=== PATIENT | male | born 1975 | race American Indian/Alaskan Native ===

== ENCOUNTER 2017-10-03 20:06 | Emergency (ER) | payer MEDICAID, OTHER, SELFPAY ==
[2017-10-03 20:19] VITALS: BP 133/68; PULSE 86; RESP 16; TEMP 36.8; O2SAT 98
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
[2017-10-03] MEDS: IBUPROFEN 400 MG TABLET 800 MG PO (21:18)
[2017-10-03 21:19] VITALS: BP 128/68; PULSE 79; RESP 18; O2SAT 96
== END 2017-10-03 21:37 | disposition home or self-care (01) ==
PROVIDERS: Emergency Provider Internal Medicine; Family Provider Family Medicine; PCP Family Medicine
DX: M54.5 Low back pain (principal); V49.40XA Driver injured in collision with unspecified motor vehicles in traffic accident, initial encounter
CPT/HCPCS: 72100; 81003; 99282; 99284

== ENCOUNTER 2021-08-18 19:29 | Emergency (ER) | payer SELFPAY ==
[2021-08-18 19:36] VITALS: BP 126/64; PULSE 64; RESP 20; TEMP 36.6; O2SAT 96
--- NOTE | 2021-08-18 19:46 | ED_ITS ---
HPI - General Adult General Chief complaint: Recheck/Abnormal Lab/Rx Stated complaint: states covid+, wants help Time Seen by Provider: 08/18/21 19:40 Source: patient Mode of arrival: Ambulatory History of Present Illness HPI narrative: 45-year-old male daily smoker with no significant chronic medical history presents for evaluation of positive COVID result. He states that it he was symptomatic with classic symptoms including nasal congestion, sore throat and cough 2 weeks ago and had a positive home test. He feels significantly improved and denies much in the way of any symptoms whatsoever but states he still has a positive COVID test in isn't sure what to do. He has had no fever or chills for nearly 2 weeks. He has no headache, blurred vision, runny nose or sore throat. He denies any chest pain or shortness of breath. He has no nausea, vomiting or diarrhea. He denies any dysuria, frequency or urgency. Related Data Previous Rx's Medication Instructions Recorded cephalexin 500 mg capsule (Keflex) 500 mg PO TID #21 caps 06/08/17 mupirocin 2 % topical ointment 0 kathleen topical TID ##22 06/08/17 Allergies Allergy/AdvReac Type Severity Reaction Status Date / Time No Known Drug Allergies Allergy Verified 10/03/17 20:19 Review of Systems Review of Systems Narrative: GENERAL: Denies chills, fatigue, malaise, fever, sweats. HEENT: Denies sinus pain, ear pain, sore throat, difficulty swallowing, dizziness. RESPIRATORY: Denies dyspnea, cough, wheezing, hemoptysis, sputum. CARDIOVASCULAR: Denies chest pain, palpitations, orthopnea, edema, GASTROINTESTINAL: Denies nausea, vomiting, abdominal pain, diarrhea, constipatio n, melena. : Denies dysuria, frequency, incontinence, hematuria, urinary retention. MUSCULOSKELETAL: denies weakness, joint pain, or bony pain SKIN: Denies rash, skin lesions, or other NEUROLOGIC: Denies weakness, headache, numbness, change in speech, confusion, seizures, incoordination. PSYCHIATRIC: No concerning psychosocial issues. 12 point review of systems is negative except for those stated above Patient History Medical History Degenerative disc disease Osteoarthritis of knees, bilateral Social History Smoking Status: Current every day smoker Smoking Status: Current every day smoker alcohol intake frequency: 0-2 drinks per day Substance Use Type: does not use Exam Narrative Exam Narrative: GEN: AOx3 and in no obvious distress, resting comfortably EYES: Pupils are equal, round, and reactive to light and accommodation. Extraoccular muscles are intact bilaterally. There is no subconjunctival hemorrhage or exudate. CHEST: Lungs are clear to auscultation bilaterally and free of wheezes, rales, or rhonchi. Heart rate is regular rhythm, there are no murmurs, clicks, rubs, or gallops. There is no chest wall tenderness. No sign of respiratory distress, no use of accessory muscles, no hypoxemia ABD: Abdomen is soft and nontender. There is no guarding or rebound. Bowel sounds are normal in all 4 quadrants. There is no mass or organomegaly. EXT: Full painless ROM of all extremities with no loss of sensation or strength. SKIN: Warm, pink, and dry. No erythema or rash Initial Vital Signs Initial Vital Signs: Vital Signs Temperature 97.8 F 08/18/21 19:36 Pulse Rate 64 08/18/21 19:36 Respiratory Rate 20 08/18/21 19:36 Blood Pressure 126/64 08/18/21 19:36 Pulse Oximetry 96 08/18/21 19:36 Oxygen Delivery Method 08/18/21 19:36 Course Vital Signs Vital signs: Vital Signs - 8 hr 08/18/21 19:36 Temperature 97.8 F Pulse Rate 64 Respiratory Rate 20 Blood Pressure 126/64 Pulse Oximetry 96 Oxygen Delivery Method Room Air Medical Decision Making [facility] Narrative Medical decision making narrative: We discussed patient's lack of symptoms and his typical and reassuring progression through COVID. We discussed that his COVID test will likely be positive for some time but with symptoms gone, no fever he should be able to go back to work per CDC recommendations. We discussed the utility of performing another COVID test here but agreed that it is unlikely to change the disposition. Return precautions have been given and questions answered to his apparent satisfaction Discharge Plan Departure Patient Disposition: Home Clinical Impression: COVID Instructions: DI for COVID-19 (Suspected or Confirmed ) Activity Restrictions/Additional Instructions: *You have been diagnosed with [ COVID-19] *What to do: ?* per recommendations from the CDC and the [facility] Department of Health ?* stay home except to get medical care. ?Restrict activities outside your home, except for getting medical care. ?Do not go to work, school, or public areas. ?Avoid using public transportation, ride sharing, or taxis. ?* separate yourself from other people in your home. ?* call ahead before visiting your doctor ?* Wear a facemask ?* Cover your coughs and sneezes ?* Clean your hands often ?* Avoid sharing household items ?* Clean all high-touch services every day ?* Monitor your symptoms and seek prompt medical attention if your illness is worsening, particularly with difficulty in breathing. You may discontinue your isolation when: ?1. You have been fever-free for at least 24 hours without the use of fever reducing medication, AND ?2. Your symptoms are getting better, AND ?3. At least 5 days have passed since symptoms first appeared ?4. If you have fever, continue to stay home until fever resolves Individuals with laboratory confirmed COVID-19 who have not had any symptoms may discontinue home isolation when at least 5 days have passed since the date of their first COVID-19 diagnostic test and have had no subsequent illness You should notifiy any friends and family that have been in close contact *If up to date on COVID Vaccines, then they do not need to quarantine unless symptoms develop. Get tested on day 5 (or sooner if symptoms develop). Take prec autions and watch for symptoms until day 10 *If NOT up to date on COVID Vaccines, then CDC recommends quarantine for at least 5 full days. Wear a well fitted mask at home if you must be around others. If they ?develop symptoms they should get tested. If they remain asymptomatic they should get tested on day 5. They should take precautions and monitor for symptoms until day 10. Prescriptions: No Action cephalexin [Keflex] 500 MG capsule 500 mg PO TID Qty: 21 0RF mupirocin 2 % ointment 0 kathleen Topical TID Qty: 22 0RF Referrals: Sue Villarreal MD [Primary Care Provider] - Visit Report Forms: Patient Portal/API
== END 2021-08-18 19:54 | disposition home or self-care (01) ==
PROVIDERS: Emergency Provider Emergency Medicine; Family Provider Family Medicine; PCP Family Medicine
DX: U07.1 COVID-19 (principal)
CPT/HCPCS: 99281

== ENCOUNTER 2023-08-30 22:22 | Emergency (ER) | payer OTHER, SELFPAY ==
[2023-08-30 22:49] VITALS: BP 152/69; PULSE 68; RESP 16; TEMP 37.1; O2SAT 98
[2023-08-31] VITALS (8 sets, daily range): BP systolic 112–153; BP diastolic 53–71; PULSE 53–59; RESP 16; TEMP 37; O2SAT 94–100
--- NOTE | 2023-08-31 04:04 | ED.LOWEXIN ---
HPI - Extremity Injury (Lower) General Chief Complaint: Extremity Injury, Lower Stated Complaint: leg infected, swelling and painfull Time Seen by Provider: 08/31/23 03:46 Source: patient Mode of arrival: Ambulatory History of Present Illness HPI Narrative: 47-year-old male with leg foreleg pain and redness for the last couple of days, can not recall any specific injury, not weeping from skin wounds, no history of blood clots recalled, no pain in the posterior calf, has anterior stoll area discomfort. Some slight swelling to the top of the foreleg. Related Data Previous Rx's Medication Instructions Recorded cephalexin 500 mg capsule (Keflex) 500 mg PO TID #21 caps 06/08/17 mupirocin 2 % topical ointment 0 kathleen topical TID ##22 06/08/17 cephalexin 500 mg capsule 500 mg PO QID 7 days #28 caps 08/31/23 Allergies Allergy/AdvReac Type Severity Reaction Status Date / Time No Known Drug Allergies Allergy Verified 08/30/23 22:53 Review of Systems Review of Systems Narrative: per HPI Patient History Medical History Degenerative disc disease Osteoarthritis of knees, bilateral Social History Smoking Status: Current every day smoker Smoking Status: Current every day smoker alcohol intake frequency: 0-2 drinks per day Substance Use Type: does not use Exam Narrative Exam Narrative: GENERAL: Well-developed patient, in mild distress. HEAD: Atraumatic. Normocephalic. EYES: Pupils equal round and reactive. Extraocular motions intact. No scleral icterus. No injection or drainage. ENT: Nose without bleeding, purulent drainage. Throat without erythema, tonsillar hypertrophy or exudate. Airway patent. NECK: Trachea midline. Non tender CARDIOVASCULAR: Regular rate and rhythm without murmurs, gallops, or rubs. RESPIRATORY: Clear to auscultation. Breath sounds equal bilaterally. No wheezes, rales, or rhonchi. GASTROINTESTINAL: Abdomen soft, non-tender, nondistended. EXTREMITIES: No edema or joint tenderness. BACK: Nontender without deformity or crepitance. No flank tenderness. NEURO: AOx3. SKIN: No rash or erythema of visible areas Initial Vital Signs Initial Vital Signs: Vital Signs Temperature 98.7 F 08/30/23 22:49 Pulse Rate 68 08/30/23 22:49 Respiratory Rate 16 08/30/23 22:49 Blood Pressure 152/69 H 08/30/23 22:49 Pulse Oximetry 98 08/30/23 22:49 Oxygen Delivery Method Room Air 08/30/23 22:49 Course Orders Ordered: Discontinued Medications Cephalexin HCl (Cephalexin 250 Mg Capsule) 500 mg PO NOW ONE Stop: 08/31/23 04:09 Last Admin: 08/31/23 04:15 Dose: 500 mg Documented By: Vital Signs Vital signs: Vital Signs - 8 hr 08/30/23 22:49 08/31/23 00:00 08/31/23 02:13 Temperature 98.7 F Pulse Rate 68 56 L 59 L Respiratory Rate 16 16 Blood Pressure 152/69 H 123/58 L Pulse Oximetry 98 100 98 Oxygen Delivery Method Room Air Room Air 08/31/23 02:14 08/31/23 02:14 Temperature Pulse Rate 57 L Respiratory Rate Blood Pressure 153/71 H Pulse Oximetry 97 Oxygen Delivery Method MDM - Extremity Injury (Lower) MDM Narrative Medical decision making narrative: Left anterior foreleg redness with some swelling, no posterior swelling or pain symptoms. No injury recalled. Possible anterior foreleg cellulitis, location not typical for DVT, no ultrasound for now. No injury, with short duration of symptoms, we will hold on x-ray imaging, injury and osteomyelitis not suspected at this time. Consider cellulitis. Afebrile, without recent Tylenol/antipyretics taken recent hours prior to arrival. Oral cephalexin dose now, prescription sent for 1 week course to his pharmacy. Wound recheck advised in 2 days with regular provider. Return precautions discussed. Discharge Plan Departure Patient Disposition: Home Clinical Impression: Cellulitis of left leg Activity Restrictions/Additional Instructions: Some redness with slight swelling anterior aspect left foreleg, with old scars like changes, no fever on triage, location not consistent with blood clots to the foreleg, anterior front area of the leg less likely to form clots, no posterior leg pain or swelling symptoms. Trial of oral antibiotics for now, 1st dose cephalexin given in the emergency department, course of cephalexin for discharge, wound check advised in 2 days with your regular provider. Return earlier to this/nearest emergency department for any change worsening symptoms or any concerns prior Prescriptions: New cephalexin 500 mg capsule 500 mg PO QID 7 Days Qty: 28 0RF No Action cephalexin [Keflex] 500 MG capsule 500 mg PO TID Qty: 21 0RF mupirocin 2 % ointment 0 kathleen Topical TID Qty: 22 0RF Referrals: Miscellaneous,Doctor, MD [Primary Care Provider] - Stand Alone Forms: Patient Portal/API
[2023-08-31] MEDS: cephALEXin 250 MG CAPSULE 500 MG PO (04:15)
== END 2023-08-31 04:24 | disposition home or self-care (01) ==
PROVIDERS: Emergency Provider Emergency Medicine; Family Provider Family Medicine
DX: L03.116 Cellulitis of left lower limb (principal)
CPT/HCPCS: 99283

== ENCOUNTER 2023-09-23 09:44 | Emergency (ER) | payer OTHER, SELFPAY ==
[2023-09-23 09:54] VITALS: BP 146/70; PULSE 55; RESP 16; TEMP 36.1; O2SAT 99
--- NOTE | 2023-09-23 12:17 | DI.RAD.S_ITS ---
PROCEDURE: XR KNEE LT 3V INDICATIONS: Knee pain TECHNIQUE: 3 views of the knee were acquired. COMPARISON: None. FINDINGS: Bones: No fractures or dislocations. Well-defined enthesophyte formation in anterior tibial tuberosity at distal patellar tendon insertion is seen. No suspicious bony lesions. Soft tissues: No joint effusion. No suspicious soft tissue calcifications. IMPRESSION: Enthesophyte formation involving anterior aspect of proximal tibia at distal patellar tendon insertion with thickened distal patellar tendon suggestive of tendinosis. No acute fracture or dislocation. No significant joint effusion. Dictated by: Gary Kim M.D. on 09/23/2023 at 12:44 Approved by: Gary Kim M.D. on 09/23/2023 at 12:45
--- NOTE | 2023-09-23 13:15 | DI.US.S_ITS ---
PROCEDURE: US PERIPH VENOUS LOW EXTREM LT INDICATIONS: PAIN TECHNIQUE: Real-time imaging, as well as color and pulse Doppler interrogation, were performed of the lower extremity deep veins from the inguinal ligament to the popliteal fossa, with documentation of the visualized calf veins. COMPARISON: [facility], CR, XR KNEE LT 3V, 09/23/2023, 12:24. FINDINGS: The common femoral, femoral, popliteal, and the visualized calf veins are normally compressible, and free of intraluminal thrombus. Color and pulse Doppler demonstrate normal phasic intraluminal flow. There is normal augmentation response to distal compression maneuver. IMPRESSION: No findings of lower extremity deep venous thrombosis. Dictated by: Glenn Calixto M.D. on 09/23/2023 at 13:49 Approved by: Glenn Calixto M.D. on 09/23/2023 at 13:50
[2023-09-23 15:36] VITALS: BP 167/70; PULSE 56; RESP 17; O2SAT 97
--- NOTE | 2023-09-23 15:37 | ED.RECABL ---
HPI - Recheck/Abnormal Lab/Rx <Shantelle Richardson PA-C - Last Filed: 09/23/23 17:06> General Chief Complaint: Recheck/Abnormal Lab/Rx Stated Complaint: Infection in L Leg, knot near knee Time Seen by Provider: 09/23/23 12:29 Source: patient Mode of arrival: Ambulatory History of Present Illness HPI narrative: 48-year-old male presents to the ED with left-sided leg pain. Patient was seen in the ED last week, diagnosed with cellulitis and prescribed antibiotics. Patient states that he has completed the course of antibiotics, and the rash seems to have improved significantly. Patient is presenting to the ED today due to pain and tightness just below the left knee. Patient states that his job requires him to work on his knees for long periods of time. No new trauma. No numbness, tingling, weakness. No fever, chills. Related Data Previous Rx's Medication Instructions Recorded cephalexin 500 mg capsule (Keflex) 500 mg PO TID #21 caps 06/08/17 mupirocin 2 % topical ointment 0 kathleen topical TID ##22 06/08/17 Allergies Allergy/AdvReac Type Severity Reaction Status Date / Time No Known Drug Allergies Allergy Verified 08/30/23 22:53 Review of Systems <Shantelle Richardson PA-C - Last Filed: 09/23/23 17:06> Constitutional Constitutional: Denies chills, Denies fatigue, Denies fever(s), Denies frequent falls, Denies lethargy and Denies weakness Eyes Eyes: Denies change in vision, Denies eye discharge, Denies irritation and Denies loss of vision ENT Ears, Nose, Mouth, and Throat: Denies change in voice, Denies dizziness, Denies neck pain, Denies sore throat and Denies throat swelling Cardiovascular Cardiovascular: Denies chest pain, Denies irregular heart rhythm, Denies lightheadedness, Denies palpitations, Denies dyspnea, Denies dyspnea on exertion and Denies orthopnea Respiratory Respiratory: Denies cough, Denies dyspnea, Denies dyspnea on exertion and Denies wheezing Gastrointestinal Gastrointestinal: Denies abdominal pain, Denies change in bowel habits, Denies diarrhea, Denies nausea and Denies vomiting Musculoskeletal Musculoskeletal: Denies neck pain and Denies numbness Comments: Left lower leg pain Integumentary/Breasts Skin/Breast: Denies pruritus, Denies erythema, Denies rash and Denies wounds Neurologic Neurologic: Denies behavioral changes, Denies confusion, Denies dizziness, Denies frequent falls, Denies loss of vision, Denies numbness and Denies weakness Psychiatric Psychiatric: Denies anxiety, Denies behavioral changes, Denies confusion, Denies depression, Denies homicidal ideation and Denies suicidal ideation Endocrine Endocrine: Denies fatigue, Denies flushing and Denies palpitations Hematologic/Lymphatic Hematologic/Lymphatic: Denies easy bruising Allergic/Immunologic Allergic/Immunologic: Denies urticaria, Denies throat swelling and Denies wheezing Patient History <Shantelle Richardson PA-C - Last Filed: 09/23/23 17:06> Medical History Osteoarthritis of knees, bilateral Degenerative disc disease Social History Smoking Status: Current every day smoker Smoking Status: Current every day smoker alcohol intake frequency: 0-2 drinks per day Substance Use Type: does not use Exam <Shantelle Richardson PA-C - Last Filed: 09/23/23 17:06> Narrative Exam Narrative: Const General:?cooperative, healthy appearing and comfortable [facility] Head:?normal to inspection Ears:?hearing grossly normal bilaterally Nose:?external nose normal Face and sinus:?normal facial exam and sinuses nontender Mouth:?oral mucosae normal Throat:?posterior oropharynx normal Eyes General:?appearance normal, both eyes and all related structures Neck Neck:?normal visual inspection and no lymphadenopathy noted Resp Effort & Inspection:?normal respiratory effort Auscultation:?clear to auscultation bilaterally Cardio Rate:?regular rate Rhythm:?regular rhythm Musculoskeletal There is a anterior bony bump just distal to the left knee. Not tender to palpation. Compartments are soft. Full range of motion. Neurovascularly intact. Integumentary There is some evidence of a healed rash on the lower left stoll area. No active signs of infection/cellulitis. Neuro General:?patient alert, patient awake and patient oriented x3 Initial Vital Signs Initial Vital Signs: Vital Signs Temperature 96.9 F L 09/23/23 09:54 Pulse Rate 55 L 09/23/23 09:54 Respiratory Rate 16 09/23/23 09:54 Blood Pressure 146/70 H 09/23/23 09:54 Pulse Oximetry 99 09/23/23 09:54 Oxygen Delivery Method Room Air 09/23/23 09:54 <Naima Amato MD - Last Filed: 10/10/23 18:05> Initial Vital Signs Initial Vital Signs: Vital Signs Temperature 96.9 F L 09/23/23 09:54 Pulse Rate 55 L 09/23/23 09:54 Respiratory Rate 16 09/23/23 09:54 Blood Pressure 146/70 H 09/23/23 09:54 Pulse Oximetry 99 09/23/23 09:54 Oxygen Delivery Method Room Air 09/23/23 09:54 Course <Shantelle Richardson PA-C - Last Filed: 09/23/23 17:06> Orders Ordered: ED Orders 09/23/23 12:17 XR knee LT 3V Stat 09/23/23 13:15 US periph venous low extrem lt Stat Vital Signs Vital signs: Vital Signs - 8 hr 09/23/23 09:54 09/23/23 15:36 Temperature 96.9 F L Pulse Rate 55 L 56 L Respiratory Rate 16 17 Blood Pressure 146/70 H 167/70 H Pulse Oximetry 99 97 Oxygen Delivery Method Room Air Room Air <Naima Amato MD - Last Filed: 10/10/23 18:05> Orders Ordered: ED Orders 09/23/23 12:17 XR knee LT 3V Stat 09/23/23 13:15 US periph venous low extrem lt Stat Vital Signs Vital signs: Vital Signs - 8 hr 09/23/23 09:54 09/23/23 15:36 Temperature 96.9 F L Pulse Rate 55 L 56 L Respiratory Rate 16 17 Blood Pressure 146/70 H 167/70 H Pulse Oximetry 99 97 Oxygen Delivery Method Room Air Room Air MDM - Recheck/Abnormal Lab/Rx <Shantelle Richardson PA-C - Last Filed: 09/23/23 17:06> MDM Narrative Medical decision making narrative: 48-year-old male presents to the ED with left-sided leg pain. Concern for fracture/dislocation versus musculoskeletal sprain/strain versus DVT versus other. Will obtain x-ray and ultrasound. Will reassess. Ultrasound with no findings of lower extremity deep venous thrombosis. X-ray shows enthesophyte formation involving anterior aspect of proximal tibia distal patellar tendon insertion with thickened distal patellar tendon suggestive of tendinosis. No acute fracture or dislocation. No significant joint effusion. Patient's pain correlates with the area of the enthesophyte formation. Discussed findings with patient. Recommend NSAIDs, Tylenol. Recommend follow-up with PCP and ortho for further evaluation. ED return precautions discussed with patient. Patient verbalized understanding. Medical records reviewed: Yes Discharge Plan Departure Patient Disposition: Home Clinical Impression: Enthesopathy of lower extremity Instructions: DI for Leg Pain Activity Restrictions/Additional Instructions: You were evaluated in the ED today for left-sided leg pain. Your x-ray shows some enthesophyte formation below your left knee and some tendinosis. This is likely due to stress on the knee since you work on your knee a lot. There is no fracture or dislocation. Your ultrasound was normal and did not show any blood clots. Please follow-up with your PCP and an ortho specialist for further evaluation and treatment. You may take 600 mg of ibuprofen every 8 hours with food for pain. Return to the ED if you have worsening symptoms, numbness, tingling, weakness. Prescriptions: No Action cephalexin [Keflex] 500 MG capsule 500 mg PO TID Qty: 21 0RF mupirocin 2 % ointment 0 kathleen Topical TID Qty: 22 0RF Referrals: Miscellaneous,[facility] [Primary Care Provider] - Stand Alone Forms: Patient Portal/API ED Sign-out <Naima Amato MD - Last Filed: 10/10/23 18:05> Cosign ED Attending Deborah Attestation: I was immediately available in the department for consultation throughout this patient's visit. Naima Amato MD
== END 2023-09-23 15:38 | disposition home or self-care (01) ==
PROVIDERS: Emergency Provider Student in an Organized Health Care Education/Training Program; Family Provider Family Medicine
DX: M76.9 Unspecified enthesopathy, lower limb, excluding foot (principal)
CPT/HCPCS: 73562; 93971; 99283